=== PATIENT | female | born 1945 | race Two or more races ===

== ENCOUNTER 2023-01-14 02:52 | Emergency (ER) | payer BC, MEDICAID ==
[~2023-01-14] VITALS: Ht 154.9 cm; Wt 83.5 kg
[2023-01-14] MEDS ORDERED: FAMOTIDINE/PF INJ 20 MG/2 ML VIAL IV ONE ×2 (04:00→04:10)
[2023-01-14 04:09] LABS: APPEARANCE,URINE CLEAR (CLEAR); BILIRUBIN,URINE NEGATIVE (NEGATIVE); BLOOD, URINE TRACE-INTA Ery/uL (NEGATIVE); COLOR,URINE YELLOW (YELLOW); KETONES,URINE 1+ mg/dL (NEGATIVE); LEUKOCYTE ESTERASE ,URINE NEGATIVE (NEGATIVE); NITRITE, URINE NEGATIVE (NEGATIVE); PH,URINE 6.5 (5.0-8.0); PROTEIN,URINE 2+ mg/dl (NEGATIVE); UGLUCOSE 3+ mg/dL (NEGATIVE); UROBILINOGEN,URINE 0.2 EU/dL (0.2)
[2023-01-14 04:09] LABS: BASOPHILS # (AUTO) 0.1 K/uL (0.0-0.2); BASOPHILS % (AUTO) 0.5 % (0.0-2.0); EOSINOPHILS % (AUTO) 0.1 % (0.0-6.0); HEMATOCRIT 38 % (33-45); HEMOGLOBIN 12.4 g/dL (11.5-14.8); LYMPHOCYTES # (AUTO) 2.2 K/uL (0.8-4.8); LYMPHOCYTES % (AUTO) 21.2 % (20.0-44.0); MEAN CORPUSCULAR HEMOGLOBIN 28 PG (26.0-33.0); MEAN CORPUSCULAR HGB CONC 33 g/dl (31.0-36.0); MEAN CORPUSCULAR VOLUME 87 fL (82-100); MONOCYTES # (AUTO) 0.2 K/uL (0.1-1.30); MONOCYTES % (AUTO) 1.4 % (2.0-12.0); NEUTROPHILS % (AUTO) 76.8 % (43.0-81.0); PLATELET COUNT (AUTO) 253 K/uL (150-450); RED CELL DISTRIBUTION WIDTH 14.4 % (11.5-15.0); WHITE BLOOD COUNT (AUTO) 10.5 K/uL (4.3-11.0)
[2023-01-14 04:23] LABS: ALANINE AMINOTRANSFERASE 30 U/L (12-78); ALBUMIN 3.6 g/dL (3.4-5.0); ALKALINE PHOSPHATASE 82 U/L (46-116); ASPARTATE AMINOTRANSFERASE 28 U/L (15-37); BILIRUBIN,DIRECT 0.2 mg/dL (0.0-0.2); BILIRUBIN,TOTAL 0.7 mg/dL (0.2-1.0); CALCIUM, SERUM 9.5 mg/dL (8.5-10.1); CARBON DIOXIDE 17 mmol/L (21-32); CHLORIDE 96 mmol/L (98-107); CREATININE 1.1 mg/dL (0.6-1.3); GLUCOSE 307 mg/dL (74-106); LIPASE 38 U/L (16-77); POTASSIUM 5.2 mmol/L (3.5-5.1); SODIUM SERUM 128 mmol/L (136-145); TOTAL PROTEIN, SERUM 7.8 g/dL (6.4-8.2); UREA NITROGEN, BLOOD 15 mg/dL (7-18)
[2023-01-14 05:18] LABS: WBC,URINE NONE SEEN /HPF (0-3)
[2023-01-14 05:19] LABS: ADD URINE CULTURE NO; BACTERIA,URINE Few /HPF (None Seen); MUCUS,URINE Moderate /LPF (None Seen)
[2023-01-14 06:52] VITALS: BP 134/78; TEMP 98; O2SAT 99
== END 2023-01-14 06:57 | disposition home or self-care (01) ==
LOC: ER 03:05
DX: K21.9 Gastro-esophageal reflux disease without esophagitis (principal); I10 Essential (primary) hypertension; E11.9 Type 2 diabetes mellitus without complications
CPT/HCPCS: 99285; 96365; 71045; 93005; 85025; 80048; 87086; 83690; 80076; 81001; 36415; 84484; 83880; J3490

== ENCOUNTER 2023-08-19 01:59 | Inpatient (IN) | payer BC, MEDICAID, OTHER ==
[~2023-08-19] VITALS: Ht 167.6 cm; Wt 88.9 kg
[2023-08-19] MEDS ORDERED: ONDANSETRON HCL/PF 4 MG/2 ML VIAL ONE ×2 (02:15→04:49)
[2023-08-19] MEDS: IV NS 0.9% 1,000 ML BAG IV ONE (02:30)
[2023-08-19] MEDS: ONDANSETRON HCL/PF 4 MG/2 ML VIAL IVP ONE (02:30)
[2023-08-19 02:46] LABS: BASOPHILS # (AUTO) 0.1 K/uL (0.0-0.2); BASOPHILS % (AUTO) 1.1 % (0.0-2.0); EOSINOPHILS # (AUTO) 0.2 K/uL (0.0-0.7); EOSINOPHILS % (AUTO) 1.3 % (0.0-6.0); HEMATOCRIT 37 % (33-45); HEMOGLOBIN 12.2 g/dL (11.5-14.8); LYMPHOCYTES # (AUTO) 4.7 K/uL (0.8-4.8); LYMPHOCYTES % (AUTO) 38.5 % (20.0-44.0); MEAN CORPUSCULAR HEMOGLOBIN 27 PG (26.0-33.0); MEAN CORPUSCULAR HGB CONC 33 g/dl (31.0-36.0); MEAN CORPUSCULAR VOLUME 83 fL (82-100); MONOCYTES # (AUTO) 0.7 K/uL (0.1-1.30); MONOCYTES % (AUTO) 5.8 % (2.0-12.0); NEUTROPHILS # (AUTO) 6.5 K/uL (1.8-8.9); NEUTROPHILS % (AUTO) 53.3 % (43.0-81.0); PLATELET COUNT (AUTO) 287 K/uL (150-450); RED BLOOD CELL COUNT(AUTO) 4.46 MIL/uL (4.0-5.2); RED CELL DISTRIBUTION WIDTH 14.7 % (11.5-15.0); WHITE BLOOD COUNT (AUTO) 12.2 K/uL (4.3-11.0)
[2023-08-19 02:56] LABS: INR 1.07 (0.91-1.10); PARTIAL THROMBOPLASTIN TIME 28.4 SEC (24.3-34.3); PROTHROMBIN TIME 11.3 SECS (9.2-11.1)
[2023-08-19 03:00] LABS: CALCIUM, SERUM 9.3 mg/dL (8.5-10.1); CARBON DIOXIDE 19 mmol/L (21-32); CHLORIDE 86 mmol/L (98-107); CREATININE 0.8 mg/dL (0.6-1.3); GLUCOSE 171 mg/dL (74-106); POTASSIUM 4.3 mmol/L (3.5-5.1); UREA NITROGEN, BLOOD 7 mg/dL (7-18)
[2023-08-19 03:03] LABS: SODIUM SERUM 117 mmol/L (136-145)
[2023-08-19 03:08] LABS: ALANINE AMINOTRANSFERASE 28 U/L (12-78); ALBUMIN 3.5 g/dL (3.4-5.0); ALKALINE PHOSPHATASE 64 U/L (46-116); ASPARTATE AMINOTRANSFERASE 31 U/L (15-37); BILIRUBIN,DIRECT 0.2 mg/dL (0.0-0.2); BILIRUBIN,TOTAL 0.7 mg/dL (0.2-1.0); LIPASE 74 U/L (16-77); TOTAL PROTEIN, SERUM 7.6 g/dL (6.4-8.2)
[2023-08-19] MEDS: ONDANSETRON HCL/PF 4 MG/2 ML VIAL IV ONE (05:26)
[2023-08-19 06:28] LABS: APPEARANCE,URINE CLEAR (CLEAR); BILIRUBIN,URINE NEGATIVE (NEGATIVE); BLOOD, URINE NEGATIVE Ery/uL (NEGATIVE); COLOR,URINE YELLOW (YELLOW); KETONES,URINE TRACE mg/dL (NEGATIVE); LEUKOCYTE ESTERASE ,URINE NEGATIVE (NEGATIVE); NITRITE, URINE NEGATIVE (NEGATIVE); PH,URINE 6.5 (5.0-8.0); PROTEIN,URINE NEGATIVE (NEGATIVE); UGLUCOSE NEGATIVE (NEGATIVE); UROBILINOGEN,URINE 0.2 EU/dL (0.2)
[2023-08-19] MEDS ORDERED: PANT40TA49 PO (08:09)
[2023-08-19] MEDS ORDERED: ATEN50TA PO (08:09)
[2023-08-19] MEDS ORDERED: MULT-213 PO (08:09)
[2023-08-19] MEDS ORDERED: PRAV40TA3 PO (08:09)
[2023-08-19] MEDS ORDERED: GLIP5TAB13 PO (08:09)
[2023-08-19] MEDS ORDERED: METF-442 PO (08:09)
[2023-08-19] MEDS ORDERED: SPIR50TA PO (08:09)
[2023-08-19] MEDS ORDERED: LATA2.5D15 EACHEYE (08:09)
[2023-08-19] MEDS ORDERED: INSU100I30 SQ (08:09)
[2023-08-19] MEDS ORDERED: IV NS 0.9% 1,000 ML IV PRN (09:00)
[2023-08-19] MEDS ORDERED: ZOLPIDEM TARTRATE 5 MG TABLET PO PRN (09:00)
[2023-08-19] MEDS ORDERED: Z GUARD REMEDY 4 OZ OINT TP PRN (09:00)
[2023-08-19 12:00] VITALS: BP 154/87; TEMP 97.5; O2SAT 99
[2023-08-19 12:23] LABS: THYROID STIMULATING HORMONE 1.86 uIU/mL (0.358-3.74); URIC ACID 3.4 mg/dL (2.6-7.2)
[2023-08-19 12:24] LABS: CALCIUM, SERUM 8.8 mg/dL (8.5-10.1); CREATININE 0.6 mg/dL (0.6-1.3); MAGNESIUM 1.5 mg/dL (1.8-2.4); PHOSPHORUS 3.1 mg/dL (2.5-4.9); POTASSIUM 5.3 mmol/L (3.5-5.1)
[2023-08-19] MEDS ORDERED: IV NS 0.9% 1,000 ML BAG IV PRN ×3 (13:00→17:00)
[2023-08-19 13:19] LABS: APPEARANCE,URINE SLIGHTLY CLOUDY (CLEAR); BILIRUBIN,URINE NEGATIVE (NEGATIVE); BLOOD, URINE NEGATIVE Ery/uL (NEGATIVE); COLOR,URINE YELLOW (YELLOW); KETONES,URINE NEGATIVE (NEGATIVE); LEUKOCYTE ESTERASE ,URINE 1+ (NEGATIVE); NITRITE, URINE NEGATIVE (NEGATIVE); PH,URINE 6.5 (5.0-8.0); PROTEIN,URINE NEGATIVE (NEGATIVE); UGLUCOSE NEGATIVE (NEGATIVE); UROBILINOGEN,URINE 0.2 EU/dL (0.2)
[2023-08-19 13:22] LABS: ADD URINE CULTURE YES; BACTERIA,URINE Few /HPF (None Seen); EOSINOPHIL,URINE None Seen; RBC,URINE 0-2 /HPF (0-2); SQUAMOUS EPITHELIAL CELL,UR Rare /HPF (None Seen)
[2023-08-19] MEDS: IV NS 0.9% 1,000 ML BAG IV PRN (13:23)
[2023-08-19 13:25] LABS: CREATININE, URINE 25.6 MG/DL (30.0-125.0); URINE TOTAL PROTEIN 17.2 mg/dL (0-11.9)
[2023-08-19 16:00] VITALS: BP 144/58; TEMP 98.2; O2SAT 100
[2023-08-19] MEDS: IV NS 0.9% 1,000 ML IV PRN (16:54)
[2023-08-19 17:54] LABS: CALCIUM, SERUM 8.5 mg/dL (8.5-10.1); CREATININE 0.7 mg/dL (0.6-1.3)
[2023-08-19] MEDS: IV D5W 1,000 ML IV PRN (18:32)
[2023-08-19 20:00] VITALS: BP 137/52; TEMP 97.7; O2SAT 99
[2023-08-19] MEDS: glipiZIDE 5 MG TABLET PO SCH (20:22)
[2023-08-19 20:33] LABS: CALCIUM, SERUM 8.6 mg/dL (8.5-10.1); CREATININE 0.7 mg/dL (0.6-1.3); POTASSIUM 4.7 mmol/L (3.5-5.1)
[2023-08-19] MEDS ORDERED: INSULIN REGULAR, HUMAN 100 UNIT/ML 10 ML VIAL SQ PRN (21:00)
[2023-08-19] MEDS ORDERED: BLOOD SUGAR DIAGNOSTIC 1 EACH STRIP IN SCH ×2 (22:00)
[2023-08-19] MEDS: INSULIN GLARGINE, 100 UNIT/ML CARTRIDGE SQ SCH (22:00)
[2023-08-19] MEDS ORDERED: DEXTROSE 50%-WATER 50 ML DISP.SYRIN IV PRN (22:00)
[2023-08-19] MEDS: LATANOPROST EYE DROP 0.005% 2.5 ML BOTTLE EACHEYE SCH (22:00)
[2023-08-19] MEDS: BLOOD SUGAR DIAGNOSTIC 1 EACH STRIP IN SCH (23:53)
[2023-08-20] VITALS: BP 122/50; TEMP 98.1; O2SAT 99
[2023-08-20] MEDS: MAG HYDROX/AL HYDROX/SIMETH 30 ML UDC PO PRN (00:48)
[2023-08-20] MEDS: INSULIN REGULAR, HUMAN 100 UNIT/ML 3 ML VIAL SQ PRN (00:57)
[2023-08-20 04:00] VITALS: BP 139/51; TEMP 98.5; O2SAT 99
[2023-08-20 06:46] LABS: ALBUMIN 2.9 g/dL (3.4-5.0); BILIRUBIN,TOTAL 1.1 mg/dL (0.2-1.0); CALCIUM, SERUM 9.3 mg/dL (8.5-10.1); CREATININE 0.7 mg/dL (0.6-1.3); MAGNESIUM 1.6 mg/dL (1.8-2.4); PHOSPHORUS 3.3 mg/dL (2.5-4.9); POTASSIUM 4.4 mmol/L (3.5-5.1); TOTAL PROTEIN, SERUM 6.4 g/dL (6.4-8.2)
[2023-08-20 06:51] LABS: BASOPHILS # (AUTO) 0.1 K/uL (0.0-0.2); BASOPHILS % (AUTO) 0.8 % (0.0-2.0); EOSINOPHILS # (AUTO) 0.3 K/uL (0.0-0.7); EOSINOPHILS % (AUTO) 3.9 % (0.0-6.0); HEMATOCRIT 34 % (33-45); HEMOGLOBIN 11.5 g/dL (11.5-14.8); LYMPHOCYTES # (AUTO) 3.4 K/uL (0.8-4.8); LYMPHOCYTES % (AUTO) 38.1 % (20.0-44.0); MEAN CORPUSCULAR HEMOGLOBIN 28 PG (26.0-33.0); MEAN CORPUSCULAR HGB CONC 34 g/dl (31.0-36.0); MEAN CORPUSCULAR VOLUME 83 fL (82-100); MONOCYTES # (AUTO) 0.7 K/uL (0.1-1.30); MONOCYTES % (AUTO) 7.7 % (2.0-12.0); NEUTROPHILS # (AUTO) 4.4 K/uL (1.8-8.9); NEUTROPHILS % (AUTO) 49.5 % (43.0-81.0); PLATELET COUNT (AUTO) 266 K/uL (150-450); RED BLOOD CELL COUNT(AUTO) 4.15 MIL/uL (4.0-5.2); RED CELL DISTRIBUTION WIDTH 14.9 % (11.5-15.0); WHITE BLOOD COUNT (AUTO) 8.9 K/uL (4.3-11.0)
[2023-08-20 08:00] VITALS: BP 149/46; TEMP 97.9; O2SAT 100
[2023-08-20] MEDS: MULTIVIT W/MINERALS 1 TAB TABLET PO SCH (08:19)
[2023-08-20] MEDS: ATORVASTATIN 10 MG TABLET PO SCH (08:19)
[2023-08-20] MEDS: ACETAMINOPHEN 325 MG TABLET PO PRN (08:19)
[2023-08-20] MEDS: PANTOPRAZOLE 40 MG TABLET.DR PO SCH (08:19)
[2023-08-20] MEDS: ATENOLOL 50 MG TABLET PO SCH (08:20)
[2023-08-20] MEDS: ONDANSETRON HCL/PF 4 MG/2 ML VIAL IVP PRN (08:58)
[2023-08-20] MEDS: Magnesium 1GM/D5W 100ML PREMIX 100 ML IV SCH (08:58)
[2023-08-20] MEDS ORDERED: SPIRONOLACTONE 25 MG TABLET PO SCH (09:00)
[2023-08-20 12:00] VITALS: BP 122/50; TEMP 97.9; O2SAT 99
[2023-08-20 16:00] VITALS: BP 117/47; TEMP 97.5; O2SAT 98
[2023-08-20 20:00] VITALS: BP 125/49; TEMP 97.9; O2SAT 98
[2023-08-20] MEDS: MAGNESIUM HYDROXIDE 30 ML UDC PO PRN (21:53)
[2023-08-21 04:00] VITALS: BP 110/50; TEMP 97.9; O2SAT 100
[2023-08-21 06:58] LABS: CALCIUM, SERUM 8.6 mg/dL (8.5-10.1); CREATININE 0.8 mg/dL (0.6-1.3); POTASSIUM 4.6 mmol/L (3.5-5.1)
[2023-08-21 08:00] VITALS: BP 131/60; TEMP 97.5; O2SAT 99
[2023-08-21] MEDS: LIDOCAINE 5% (PATCH) 1 EA PATCH TP SCH (15:13)
[2023-08-21 16:00] VITALS: BP 117/81; TEMP 98.1; O2SAT 99
[2023-08-21 20:00] VITALS: BP 141/45; TEMP 98.8; O2SAT 98
[2023-08-22 04:00] VITALS: BP 138/76; TEMP 98.5; O2SAT 95
[2023-08-22 07:45] LABS: CALCIUM, SERUM 9.3 mg/dL (8.5-10.1); CREATININE 0.7 mg/dL (0.6-1.3); POTASSIUM 4.6 mmol/L (3.5-5.1)
[2023-08-22 08:00] VITALS: BP 124/60; TEMP 98.1; O2SAT 99
[2023-08-22 08:18] VITALS: BP 138/76
[2023-08-22] MEDS ORDERED: LIDO30AD10 TP (11:00)
== END 2023-08-22 12:32 | disposition home health service (06) | DRG 641 ==
LOC: ER 02:07 → TELE1 09:50 → MEDSG1 08-20 12:20
PROVIDERS: ADMIT Nurse Practitioner Acute Care; ATTEND Nurse Practitioner Acute Care
DX: E87.1 Hypo-osmolality and hyponatremia (principal); K74.60 Unspecified cirrhosis of liver; E66.9 Obesity, unspecified; E78.5 Hyperlipidemia, unspecified; E11.9 Type 2 diabetes mellitus without complications; I11.9 Hypertensive heart disease without heart failure; G89.29 Other chronic pain; Z79.84 Long term (current) use of oral hypoglycemic drugs; Z79.4 Long term (current) use of insulin; Z79.899 Other long term (current) drug therapy; D72.829 Elevated white blood cell count, unspecified; T50.905A Adverse effect of unspecified drugs, medicaments and biological substances, initial encounter; Y92.9 Unspecified place or not applicable; Z68.31 Body mass index [BMI] 31.0-31.9, adult; E86.9 Volume depletion, unspecified; K21.9 Gastro-esophageal reflux disease without esophagitis; K29.70 Gastritis, unspecified, without bleeding
CPT/HCPCS: 36415; 71045-TC; 80048-TC; 80053-TC; 80076-TC; 81001; 82533; 82570-TC; 82962-TC; 83690-TC; 83735-TC; 83935-TC; 84100-TC; 84300-TC; 84443-TC; 84484-TC; 84550-TC; 85025-TC; 85730-TC; 97112-TC; 97116-TC; 97530-TC; A4223; G0378; J1815; J2405; J3475; J7030; J7040; J7042

== ENCOUNTER 2024-02-17 18:35 | Inpatient (IN) | payer OTHER ==
[~2024-02-17] VITALS: Ht 154.9 cm; Wt 95.7 kg
[2024-02-17] MEDS: ENOXAPARIN SODIUM 40 MG/0.4 ML DISP.SYRIN SQ SCH (05:45)
[~2024-02-17 18:35] MED LIST: ATEN50TA PO; GLIP5TAB13 PO; INSU100I30 SQ; LATA2.5D15 EACHEYE; LIDO30AD10 TP; METF-442 PO; MULT-213 PO; PANT40TA49 PO; PRAV40TA3 PO; SPIR50TA PO
[2024-02-17] MEDS ORDERED: FUROSEMIDE 40 MG/4 ML VIAL ONE (18:59)
[2024-02-17] MEDS: NTG 50 MG/D5W250 ML BOTTL 250 ML IV ONE (19:00)
[2024-02-17] MEDS: FUROSEMIDE 40 MG/4 ML VIAL IV ONE (19:01)
[2024-02-17 19:02] LABS: BASOPHILS % (AUTO) 0.3 % (0.0-2.0); EOSINOPHILS % (AUTO) 0.2 % (0.0-6.0); HEMATOCRIT 31 % (33-45); HEMOGLOBIN 10.4 g/dL (11.5-14.8); LYMPHOCYTES # (AUTO) 2.2 K/uL (0.8-4.8); LYMPHOCYTES % (AUTO) 21.3 % (20.0-44.0); MEAN CORPUSCULAR HEMOGLOBIN 26 PG (26.0-33.0); MEAN CORPUSCULAR HGB CONC 33 g/dl (31.0-36.0); MEAN CORPUSCULAR VOLUME 77 fL (82-100); MONOCYTES # (AUTO) 0.2 K/uL (0.1-1.30); MONOCYTES % (AUTO) 1.9 % (2.0-12.0); NEUTROPHILS % (AUTO) 76.3 % (43.0-81.0); PLATELET COUNT (AUTO) 318 K/uL (150-450); RED BLOOD CELL COUNT(AUTO) 4.06 MIL/uL (4.0-5.2); RED CELL DISTRIBUTION WIDTH 16.8 % (11.5-15.0); WHITE BLOOD COUNT (AUTO) 10.5 K/uL (4.3-11.0)
[2024-02-17 19:14] LABS: CALCIUM, SERUM 8.7 mg/dL (8.5-10.1); CARBON DIOXIDE 20 mmol/L (21-32); CHLORIDE 88 mmol/L (98-107); GLUCOSE 237 mg/dL (74-106); UREA NITROGEN, BLOOD 10 mg/dL (7-18)
[2024-02-17 19:16] LABS: POTASSIUM 6.5 mmol/L (3.5-5.1); SODIUM SERUM 119 mmol/L (136-145)
[2024-02-17] MEDS ORDERED: Calcium Gluconate 0.465 MEQ/ML VIAL IV ONE (20:32)
[2024-02-17] MEDS ORDERED: SODIUM ZIRCONIUM CYCLOSILICATE 5 GM POWD.PACK ONE (20:32)
[2024-02-17] MEDS ORDERED: SODIUM BICARBONATE SYR 50 MEQ/50 ML DISP.SYRIN ONE (20:32)
[2024-02-17] MEDS: Calcium Gluconate 1GM/10ML 4.65 MEQ in IV NS 0.9% 100 ML IV ONE (20:57)
[2024-02-17] MEDS: SODIUM BICARBONATE SYR 50 MEQ/50 ML DISP.SYRIN IV ONE (20:57)
[2024-02-17] MEDS: SODIUM ZIRCONIUM CYCLOSILICATE 5 GM POWD.PACK PO ONE (21:03)
[2024-02-17 21:11] LABS: ABG BASE EXCESS -2.6 mmol/L (-2.0-3.0); ABG OXYGEN SATURATION 99.6 % (94.0-98.0); ABG PCO2 29.4 mmHg (32.0-45.0); ABG PH 7.458 (7.350-7.450); ABG PO2 335.5 mmHg (83.0-108.0); ABG TOTAL HEMOGLOBIN 10.9 G/dL (12.0-16.0); COHb 0.3 % (0.5-1.5); MetHb 0.3 % (0.0-1.5); SITE, ABG RIGHT RADIAL
[2024-02-17] MEDS ORDERED: Z GUARD REMEDY 4 OZ OINT TP PRN (21:30)
[2024-02-17] MEDS ORDERED: ACETAMINOPHEN 650 MG/SUPP.RECT RC PRN (21:30)
[2024-02-17] MEDS ORDERED: ONDANSETRON HCL/PF 4 MG/2 ML VIAL IVP PRN (21:30)
[2024-02-17] MEDS ORDERED: ALBUTEROL FS 2.5 MG/3 ML VIAL.NEB NEB PRN (21:30)
[2024-02-17 23:34] LABS: POTASSIUM 5.8 mmol/L (3.5-5.1)
[2024-02-18] VITALS (8 sets, daily range): BP systolic 113–159; BP diastolic 44–82; TEMP 97.3–97.4; O2SAT 89–99
[2024-02-18] MEDS ORDERED: INSULIN REGULAR, HUMAN 100 UNIT/ML 10 ML VIAL SQ SCH
[2024-02-18] MEDS: BLOOD SUGAR DIAGNOSTIC 1 EACH STRIP IN SCH (05:30)
[2024-02-18] MEDS ORDERED: ENOXAPARIN SODIUM 40 MG/0.4 ML DISP.SYRIN SQ ONE (05:43)
[2024-02-18] MEDS ORDERED: INSULIN REGULAR, HUMAN 100 UNIT/ML 10 ML VIAL ONE (05:51)
[2024-02-18] MEDS: INSULIN REGULAR, HUMAN 100 UNIT/ML 10 ML VIAL SQ SCH (05:56)
[2024-02-18 06:21] LABS: BASOPHILS % (AUTO) 0.1 % (0.0-2.0); HEMATOCRIT 30 % (33-45); HEMOGLOBIN 9.8 g/dL (11.5-14.8); LYMPHOCYTES # (AUTO) 3.2 K/uL (0.8-4.8); LYMPHOCYTES % (AUTO) 28.7 % (20.0-44.0); MEAN CORPUSCULAR HEMOGLOBIN 25 PG (26.0-33.0); MEAN CORPUSCULAR HGB CONC 33 g/dl (31.0-36.0); MEAN CORPUSCULAR VOLUME 76 fL (82-100); MONOCYTES # (AUTO) 0.5 K/uL (0.1-1.30); MONOCYTES % (AUTO) 4.4 % (2.0-12.0); NEUTROPHILS # (AUTO) 7.4 K/uL (1.8-8.9); NEUTROPHILS % (AUTO) 66.8 % (43.0-81.0); PLATELET COUNT (AUTO) 299 K/uL (150-450); RED BLOOD CELL COUNT(AUTO) 3.88 MIL/uL (4.0-5.2); RED CELL DISTRIBUTION WIDTH 16.9 % (11.5-15.0); WHITE BLOOD COUNT (AUTO) 11.1 K/uL (4.3-11.0)
[2024-02-18 06:36] LABS: CARBON DIOXIDE 24 mmol/L (21-32); CHLORIDE 91 mmol/L (98-107); CREATININE 0.9 mg/dL (0.6-1.3); GLUCOSE 194 mg/dL (74-106); MAGNESIUM 1.8 mg/dL (1.8-2.4); NT-PRO BNP 660 pg/mL (0-125); PHOSPHORUS 3.9 mg/dL (2.5-4.9); POTASSIUM 5.9 mmol/L (3.5-5.1); SODIUM SERUM 123 mmol/L (136-145); UREA NITROGEN, BLOOD 14 mg/dL (7-18)
[2024-02-18 06:45] LABS: APPEARANCE,URINE CLEAR (CLEAR); BILIRUBIN,URINE NEGATIVE (NEGATIVE); BLOOD, URINE TRACE-INTA Ery/uL (NEGATIVE); COLOR,URINE YELLOW (YELLOW); KETONES,URINE NEGATIVE (NEGATIVE); LEUKOCYTE ESTERASE ,URINE NEGATIVE (NEGATIVE); NITRITE, URINE NEGATIVE (NEGATIVE); PROTEIN,URINE NEGATIVE (NEGATIVE); UGLUCOSE NEGATIVE (NEGATIVE); UROBILINOGEN,URINE 0.2 EU/dL (0.2)
[2024-02-18 06:51] LABS: ADD URINE CULTURE NO; BACTERIA,URINE Rare /HPF (None Seen); SQUAMOUS EPITHELIAL CELL,UR Rare /HPF (None Seen); WBC,URINE 0-2 /HPF (0-3)
[2024-02-18] MEDS ORDERED: PRED10TA PO (08:12)
[2024-02-18] MEDS ORDERED: VITA1TAB56 PO (08:12)
[2024-02-18] MEDS ORDERED: CHOL100043 PO (08:12)
[2024-02-18] MEDS ORDERED: AZIT250T13 PO (08:12)
[2024-02-18] MEDS ORDERED: ALBU8.5H8 IH (08:12)
[2024-02-18] MEDS ORDERED: CALC500T89 PO (08:12)
[2024-02-18] MEDS ORDERED: OMEG-162 PO (08:12)
[2024-02-18] MEDS ORDERED: LEVA1.2528 PO (08:12)
[2024-02-18] MEDS ORDERED: ALBU8.5H8 INH (08:12)
[2024-02-18] MEDS ORDERED: PANTOPRAZOLE 40 MG VIAL ONE (08:30)
[2024-02-18 08:36] LABS: ABG BASE EXCESS -5.1 mmol/L (-2.0-3.0); ABG OXYGEN SATURATION 97.8 % (94.0-98.0); ABG PCO2 27.6 mmHg (32.0-45.0); ABG PH 7.436 (7.350-7.450); ABG PO2 113.1 mmHg (83.0-108.0); ABG TOTAL HEMOGLOBIN 9.7 G/dL (12.0-16.0); COHb 0.3 % (0.5-1.5); O2Hb 97.5 % (94.0-97.0); SITE, ABG RIGHT RADIAL
[2024-02-18] MEDS: PANTOPRAZOLE 40 MG VIAL IV SCH (08:38)
[2024-02-18] MEDS ORDERED: FUROSEMIDE 20 MG/2 ML VIAL ONE (09:30)
[2024-02-18] MEDS: FUROSEMIDE 20 MG/2 ML VIAL IV SCH (09:45)
[2024-02-18] MEDS: SODIUM ZIRCONIUM CYCLOSILICATE 10 GM POWD.PACK PO SCH (10:15)
[2024-02-18] MEDS ORDERED: SODIUM ZIRCONIUM CYCLOSILICATE 10 GM POWD.PACK ONE (10:16)
[2024-02-18 11:52] LABS: THYROID STIMULATING HORMONE 1.5 uIU/mL (0.358-3.74); URIC ACID 4.6 mg/dL (2.6-7.2)
[2024-02-18] MEDS: glipiZIDE 5 MG TABLET PO SCH (17:22)
[2024-02-18 19:38] LABS: CALCIUM, SERUM 9.2 mg/dL (8.5-10.1); POTASSIUM 4.6 mmol/L (3.5-5.1)
[2024-02-18] MEDS: LATANOPROST EYE DROP 0.005% 2.5 ML BOTTLE EACHEYE SCH (22:20)
[2024-02-18] MEDS: ACETAMINOPHEN 325 MG TABLET PO PRN (22:21)
[2024-02-19] VITALS (23 sets, daily range): BP systolic 102–157; BP diastolic 42–99; TEMP 97–98.4; O2SAT 95–100
[2024-02-19] MEDS: VITAMIN B COMP W-C 1 TAB TABLET PO SCH (08:42)
[2024-02-19] MEDS: MULTIVIT W/MINERALS 1 TAB TABLET PO SCH (08:43)
[2024-02-19] MEDS: PANTOPRAZOLE 40 MG TABLET.DR PO SCH (08:43)
[2024-02-19] MEDS: AMLODIPINE BESYLATE 5 MG TABLET PO SCH (08:43)
[2024-02-19] MEDS: CHOLECALCIFEROL 1,000 UNIT TABLET (VIT D3) PO SCH (08:43)
[2024-02-19] MEDS: CALCIUM CARBONATE (1250) 500 MG TABLET PO SCH (08:43)
[2024-02-19] MEDS: ATENOLOL 50 MG TABLET PO SCH (08:43)
[2024-02-19] MEDS: ATORVASTATIN 10 MG TABLET PO SCH (08:44)
[2024-02-19] MEDS: INSULIN GLARGINE, 100 UNIT/ML CARTRIDGE SQ SCH (08:49)
[2024-02-19] MEDS: HYDROCORTISONE SOD SUCCINATE 100 MG/2 ML VIAL IV SCH (12:26)
[2024-02-19 14:51] LABS: BASOPHILS # (AUTO) 0.1 K/uL (0.0-0.2); BASOPHILS % (AUTO) 0.7 % (0.0-2.0); EOSINOPHILS # (AUTO) 0.1 K/uL (0.0-0.7); EOSINOPHILS % (AUTO) 1.7 % (0.0-6.0); HEMATOCRIT 32 % (33-45); HEMOGLOBIN 10.5 g/dL (11.5-14.8); LYMPHOCYTES # (AUTO) 2.3 K/uL (0.8-4.8); LYMPHOCYTES % (AUTO) 26.8 % (20.0-44.0); MEAN CORPUSCULAR HEMOGLOBIN 25 PG (26.0-33.0); MEAN CORPUSCULAR HGB CONC 32 g/dl (31.0-36.0); MEAN CORPUSCULAR VOLUME 77 fL (82-100); MONOCYTES # (AUTO) 0.5 K/uL (0.1-1.30); NEUTROPHILS # (AUTO) 5.7 K/uL (1.8-8.9); NEUTROPHILS % (AUTO) 64.8 % (43.0-81.0); PLATELET COUNT (AUTO) 280 K/uL (150-450); RED BLOOD CELL COUNT(AUTO) 4.24 MIL/uL (4.0-5.2); WHITE BLOOD COUNT (AUTO) 8.7 K/uL (4.3-11.0)
[2024-02-19 15:06] LABS: CALCIUM, SERUM 9.1 mg/dL (8.5-10.1)
[2024-02-20 05:00] VITALS: BP 150/59; TEMP 98.6; O2SAT 99
[2024-02-20] MEDS: HYDROCORTISONE SOD SUCCINATE 100 MG/2 ML VIAL ONE (06:49)
[2024-02-20 08:00] VITALS: BP 163/59; TEMP 98.1; O2SAT 100
[2024-02-20 13:25] LABS: BASOPHILS % (AUTO) 0.1 % (0.0-2.0); HEMATOCRIT 30 % (33-45); HEMOGLOBIN 10.1 g/dL (11.5-14.8); LYMPHOCYTES # (AUTO) 2.3 K/uL (0.8-4.8); LYMPHOCYTES % (AUTO) 20.9 % (20.0-44.0); MEAN CORPUSCULAR HEMOGLOBIN 26 PG (26.0-33.0); MEAN CORPUSCULAR HGB CONC 34 g/dl (31.0-36.0); MEAN CORPUSCULAR VOLUME 77 fL (82-100); MONOCYTES # (AUTO) 0.5 K/uL (0.1-1.30); MONOCYTES % (AUTO) 4.9 % (2.0-12.0); NEUTROPHILS # (AUTO) 8.2 K/uL (1.8-8.9); NEUTROPHILS % (AUTO) 74.1 % (43.0-81.0); PLATELET COUNT (AUTO) 306 K/uL (150-450); RED BLOOD CELL COUNT(AUTO) 3.86 MIL/uL (4.0-5.2); RED CELL DISTRIBUTION WIDTH 17.2 % (11.5-15.0); WHITE BLOOD COUNT (AUTO) 11.1 K/uL (4.3-11.0)
[2024-02-20 13:44] LABS: BILIRUBIN,TOTAL 0.5 mg/dL (0.2-1.0); CALCIUM, SERUM 8.6 mg/dL (8.5-10.1); MAGNESIUM 1.8 mg/dL (1.8-2.4); PHOSPHORUS 3.4 mg/dL (2.5-4.9); POTASSIUM 3.1 mmol/L (3.5-5.1)
[2024-02-20] MEDS: POTASSIUM CHLORIDE 20 MEQ TAB.PRT.SR PO ONE (15:40)
[2024-02-20 16:00] VITALS: BP 147/51; TEMP 97.7; O2SAT 99
[2024-02-20 20:00] VITALS: BP 134/49; TEMP 97.7; O2SAT 99
[2024-02-20] MEDS: FUROSEMIDE 20 MG/2 ML VIAL IV SCH (20:21)
[2024-02-20 20:53] VITALS: BP 134/49; TEMP 97.7; O2SAT 99
[2024-02-21] VITALS: BP 157/69; TEMP 98.4; O2SAT 100
[2024-02-21 04:00] VITALS: BP 135/50; TEMP 98.1; O2SAT 100
[2024-02-21 07:29] LABS: CALCIUM, SERUM 8.1 mg/dL (8.5-10.1); CREATININE 0.8 mg/dL (0.6-1.3); MAGNESIUM 1.9 mg/dL (1.8-2.4); PHOSPHORUS 3.6 mg/dL (2.5-4.9); POTASSIUM 3.4 mmol/L (3.5-5.1)
[2024-02-21 07:31] LABS: BASOPHILS # (AUTO) 0.1 K/uL (0.0-0.2); BASOPHILS % (AUTO) 0.7 % (0.0-2.0); EOSINOPHILS # (AUTO) 0.3 K/uL (0.0-0.7); EOSINOPHILS % (AUTO) 2.4 % (0.0-6.0); HEMATOCRIT 35 % (33-45); LYMPHOCYTES % (AUTO) 40.3 % (20.0-44.0); MEAN CORPUSCULAR HEMOGLOBIN 25 PG (26.0-33.0); MEAN CORPUSCULAR HGB CONC 32 g/dl (31.0-36.0); MEAN CORPUSCULAR VOLUME 79 fL (82-100); MONOCYTES % (AUTO) 8.3 % (2.0-12.0); NEUTROPHILS % (AUTO) 48.3 % (43.0-81.0); PLATELET COUNT (AUTO) 283 K/uL (150-450); RED CELL DISTRIBUTION WIDTH 17.2 % (11.5-15.0); WHITE BLOOD COUNT (AUTO) 12.5 K/uL (4.3-11.0)
[2024-02-21 08:00] VITALS: BP 151/60; TEMP 98.2; O2SAT 98
[2024-02-21] MEDS: POTASSIUM CHLORIDE 20 MEQ TAB.PRT.SR PO SCH (10:22)
[2024-02-21 12:00] VITALS: BP 125/50; TEMP 98.6; O2SAT 100
[2024-02-21] MEDS ORDERED: AMLO-212 PO (15:01)
[2024-02-21] MEDS ORDERED: BUME0.5T6 PO (15:01)
[2024-02-21 16:00] VITALS: BP 129/80; TEMP 98.2; O2SAT 100
[2024-02-21 20:00] VITALS: BP 164/56; TEMP 97.9; O2SAT 99
[2024-02-22] VITALS: BP 140/60; TEMP 97.7; O2SAT 98
[2024-02-22 04:00] VITALS: BP 147/60; TEMP 98.1; O2SAT 100
[2024-02-22 07:00] VITALS: BP 140/65; TEMP 97.7; O2SAT 100
[2024-02-22 11:30] VITALS: BP 135/48; TEMP 98.8; O2SAT 100
[2024-02-22] MEDS: PREGABALIN 25 MG CAPSULE PO SCH (11:33)
[2024-02-22] MEDS ORDERED: PREG50CA PO (12:12)
[2024-02-22 16:00] VITALS: BP 138/49; TEMP 98.1; O2SAT 100
[2024-02-22 17:08] VITALS: BP 138/49
[2024-02-22] MEDS: FUROSEMIDE 40 MG TABLET PO SCH (17:08)
== END 2024-02-22 19:30 | disposition home or self-care (01) | DRG 643 ==
LOC: ER 19:27 → TRANSITION 02-18 00:14 → ICU 02-18 15:59 → TELE 02-19 15:52 → MED 02-22 11:34
PROVIDERS: ADMIT Nurse Practitioner Family; ATTEND Nurse Practitioner Acute Care
PROC: 5A09357 Assistance with Respiratory Ventilation, Less than 24 Consecutive Hours, Continuous Positive Airway Pressure (ICD-10-PCS; principal; 2024-02-18)
DX: E22.2 Syndrome of inappropriate secretion of antidiuretic hormone (principal); I50.33 Acute on chronic diastolic (congestive) heart failure; J96.01 Acute respiratory failure with hypoxia; Z68.41 Body mass index [BMI] 40.0-44.9, adult; I11.0 Hypertensive heart disease with heart failure; E11.40 Type 2 diabetes mellitus with diabetic neuropathy, unspecified; E78.5 Hyperlipidemia, unspecified; Z88.1 Allergy status to other antibiotic agents; Z88.5 Allergy status to narcotic agent; Z79.84 Long term (current) use of oral hypoglycemic drugs; Z79.4 Long term (current) use of insulin; Z79.899 Other long term (current) drug therapy; Z79.51 Long term (current) use of inhaled steroids; E87.5 Hyperkalemia; D63.8 Anemia in other chronic diseases classified elsewhere; E66.01 Morbid (severe) obesity due to excess calories; T50.0X5A Adverse effect of mineralocorticoids and their antagonists, initial encounter; Y92.9 Unspecified place or not applicable; K74.60 Unspecified cirrhosis of liver; H40.9 Unspecified glaucoma; I16.0 Hypertensive urgency; G47.33 Obstructive sleep apnea (adult) (pediatric); Z91.148 Patient's other noncompliance with medication regimen for other reason
CPT/HCPCS: 36415; 36600; 71045-TC; 80048-TC; 80053-TC; 81001; 82533; 82803-TC; 82962-TC; 83735-TC; 83880; 83935-TC; 84100-TC; 84132-TC; 84295-TC; 84300-TC; 84443-TC; 84484-TC; 84550-TC; 85025-TC; 87081-TC; 87086-TC; 93307-TC; 93970-TC; 97116-TC; 97530-TC; G0378; J0610; J1650; J1720; J1815; J1940; J2405; J2470; J3490; J7030